=== PATIENT | male | born 1960 | race Caucasian/White ===

== ENCOUNTER 2018-05-20 06:52 | Inpatient (IN) ==
[2018-05-20] MEDS ORDERED: MAGNESIUM SULF RIDER 2 GM in PREMIX 1 EACH IV STA (07:22)
[2018-05-20] MEDS ORDERED: THIAMINE 200 MG/2 ML VIAL IM STA (07:22)
[2018-05-20] MEDS ORDERED: LORazepam 2 MG/1 ML VIAL ONE (07:27)
[2018-05-20 07:28] LABS: Basophils # 0.1 10*3/uL (0.0-0.2); Basophils % 1.2 % (0.0-0.8); Eosinophils # 0.1 10*3/uL (0.0-0.87); Eosinophils % 0.9 % (0.00-10.9); Hematocrit 32.6 VOL% (42.0-52.0); Hemoglobin 10.2 GM/DL (14.0-18.0); Immature Granulocytes % 0.4 %; Immature Granulocytes Absolute 0.05 #; Lymphocytes # 0.5 10*3/uL (1.4-4.0); Lymphocytes % 3.9 % (21.2-54.2); Mean Corpuscular HGB Conc 31.3 GM/DL (32-36); Mean Corpuscular Hemoglobin 31 PG (27-34); Mean Corpuscular Volume 98.8 FL (87-102); Mean Platelet Volume 8.5 FL (9.6-12.0); Monocytes # 0.4 10*3/uL (0.11-0.8); Monocytes % 3.5 % (1.7-12.7); Neutrophils # 10.7 10*3/uL (1.4-7.4); Neutrophils % 90.1 % (38.7-73.9); Platelet Count 499 T/CUMM (130-400); Red Cell Distribution Width 16.3 % (9.3-17.3); White Blood Count 11.9 T/CUMM (4-12)
[2018-05-20] MEDS ORDERED: LORazepam 2 MG/1 ML VIAL IV STA (07:37)
[2018-05-20] MEDS ORDERED: levETIRAcetam 500 MG/5 ML VIAL IV ONE (07:45)
[2018-05-20 07:47] LABS: Bilirubin,Total 0.6 MG/DL (0.2-1.0); Calcium 8.3 MG/DL (8.5-10.1); Total Protein 6.6 G/DL (6.4-8.3)
[2018-05-20 07:48] LABS: Albumin 2.9 G/DL (3.4-5.0); Potassium 3.8 MMOL/L (3.5-5.1)
[2018-05-20 07:49] LABS: Band Neutrophils 2 % (0-10); Eosinophils 2 % (0-10); Lymphocytes 6 % (20-55); Platelet Estimate Increased; Segmented Neutrophils 88 % (50-85); Total Cells Counted 100
[2018-05-20 07:49] LABS: Lactic Acid 12.6 MMOL/L (0.4-2.0)
[2018-05-20 07:50] LABS: Hypochromasia 1+
[2018-05-20 08:03] LABS: Carbamazepine (Tegretol) < 0.5 UG/ML (4.0-12.0); Phenytoin (Dilantin) < 0.5 UG/ML (10-20)
[2018-05-20 08:21] LABS: Apearance,Urine CLEAR (Clear); Bilirubin,Urine Negative (Negative); Blood, Urine Negative (Negative); Glucose,Urine (UA) Negative (Negative); Ketones,Urine Negative (Negative); Mucus,Urine Occasional /LPF (Occasional); Nitrite,Urine Negative (Negative); Protein,Urine Negative; RBC,Urine <1 /HPF (0-4); Urine Color Straw (Yellow); Urine Specific Gravity 1.009 (1.001-1.035); Urine Urobilinogen < 2.0 EU/DL (0.2-1.0); WBC,Urine 1 /HPF (0-6)
[2018-05-20 08:27] LABS: Barbiturates Screen,Urine Negative (Negative); Benzodiazepines Screen,Urine Positive (Negative); Cannabinoid Screen,Urine Negative (Negative); Opiate Screen,Urine Negative (Negative); Phencyclidine Screen,Urine Negative (Negative)
[2018-05-20] MEDS ORDERED: ALBUTEROL 2.5 MG/3 ML NEB RESP TX PRN (10:33)
[2018-05-20] MEDS ORDERED: ONDANSETRON 4 MG/2 ML VIAL IV PRN (10:33)
[2018-05-20] MEDS ORDERED: LORazepam 2 MG/1 ML VIAL IV PRN (10:46)
[2018-05-20] MEDS ORDERED: hydrALAZINE 20 MG/1 ML VIAL IV PRN (12:53)
[2018-05-20] MEDS: LOSARTAN 25 MG TABLET PO SCH (16:29)
[2018-05-20] MEDS: PANTOPRAZOLE 40 MG VIAL IV SCH (16:31)
[2018-05-21 04:12] LABS: Basophils # 0.1 10*3/uL (0.0-0.2); Basophils % 1.6 % (0.0-0.8); Eosinophils # 0.3 10*3/uL (0.0-0.87); Eosinophils % 3.7 % (0.00-10.9); Hematocrit 30.4 VOL% (42.0-52.0); Hemoglobin 9.8 GM/DL (14.0-18.0); Immature Granulocytes % 0.3 %; Immature Granulocytes Absolute 0.02 #; Lymphocytes # 1.7 10*3/uL (1.4-4.0); Lymphocytes % 22.4 % (21.2-54.2); Mean Corpuscular HGB Conc 32.2 GM/DL (32-36); Mean Corpuscular Hemoglobin 31 PG (27-34); Mean Platelet Volume 9.2 FL (9.6-12.0); Monocytes # 0.7 10*3/uL (0.11-0.8); Monocytes % 9.4 % (1.7-12.7); Neutrophils # 4.7 10*3/uL (1.4-7.4); Neutrophils % 62.6 % (38.7-73.9); Platelet Count 446 T/CUMM (130-400); Red Cell Distribution Width 16.2 % (9.3-17.3); White Blood Count 7.6 T/CUMM (4-12)
[2018-05-21 04:41] LABS: Calcium 8.2 MG/DL (8.5-10.1); Osmolality,Calculated 272.7 MOS/KG (273-304); Potassium 3.2 MMOL/L (3.5-5.1)
[2018-05-21 04:43] LABS: Risk Ratio 1.73
[2018-05-21 04:48] LABS: Albumin 2.7 G/DL (3.4-5.0); Bilirubin,Direct 0.23 MG/DL (0.0-0.20); Bilirubin,Indirect 0.5 MG/DL (0.0-1.0); Bilirubin,Total 0.7 MG/DL (0.2-1.0); Total Protein 5.9 G/DL (6.4-8.3)
[2018-05-21] MEDS: LOSARTAN 25 MG TABLET PO SCH (09:33)
[2018-05-21] MEDS: POTASSIUM CHLORIDE 20 MEQ TABLET PO PRN ×2 (09:34→12:18)
[2018-05-21] MEDS: PANTOPRAZOLE 40 MG VIAL IV SCH (12:17)
[2018-05-21] MEDS ORDERED: ACETAMINOPHEN 325 MG/10.15 ML UDCUP ONE ×2 (12:42→12:43)
[2018-05-21 13:45] VITALS: BP 160/92
== END 2018-05-21 12:48 | disposition home or self-care (01) | DRG 53 ==
LOC: EDBD → N.ED 06:52 → N.EDINP 10:32 → N.ICU 11:05
PROVIDERS: ADMIT Internal Medicine Geriatric Medicine; ATTEND Internal Medicine Geriatric Medicine

== ENCOUNTER 2018-07-16 10:11 | Inpatient (IN) ==
[2018-07-16 12:29] LABS: Basophils % 0.2 % (0.0-0.8); Eosinophils # 0.1 10*3/uL (0.0-0.87); Eosinophils % 0.9 % (0.00-10.9); Immature Granulocytes % 1.1 %; Immature Granulocytes Absolute 0.06 #; Lymphocytes # 0.9 10*3/uL (1.4-4.0); Lymphocytes % 17.4 % (21.2-54.2); Mean Corpuscular HGB Conc 30.7 GM/DL (32-36); Mean Corpuscular Hemoglobin 29 PG (27-34); Mean Corpuscular Volume 92.7 FL (87-102); Mean Platelet Volume 9.2 FL (9.6-12.0); Monocytes # 1.2 10*3/uL (0.11-0.8); Monocytes % 21.8 % (1.7-12.7); Neutrophils # 3.2 10*3/uL (1.4-7.4); Neutrophils % 58.6 % (38.7-73.9); Platelet Count 486 T/CUMM (130-400); Red Blood Count 1.79 MC/CUMM (3.8-5.5); Red Cell Distribution Width 19.6 % (9.3-17.3); White Blood Count 5.4 T/CUMM (4-12)
[2018-07-16 12:33] LABS: Hemoglobin 5.1 GM/DL (14.0-18.0)
[2018-07-16 12:34] LABS: Hematocrit 16.6 VOL% (42.0-52.0)
[2018-07-16] MEDS ORDERED: SODIUM CHLORIDE 0.9% 1,000 ML IV PRN (12:39)
[2018-07-16 12:41] LABS: Albumin 2.6 G/DL (3.4-5.0); Bilirubin,Total 0.6 MG/DL (0.2-1.0); Osmolality,Calculated 275.8 MOS/KG (273-304)
[2018-07-16 12:43] LABS: Potassium 2.3 MMOL/L (3.5-5.1)
[2018-07-16 12:50] LABS: Lactic Acid 2.4 MMOL/L (0.4-2.0)
[2018-07-16] MEDS ORDERED: POTASSIUM BICARB EFFERVESCENT 25 MEQ TABLET PO ONE (12:56)
[2018-07-16 12:59] LABS: Atypical Lymphocytes Few; Band Neutrophils 9 % (0-10); Lymphocytes 20 % (20-55); Platelet Estimate Normal; Segmented Neutrophils 58 % (50-85); Total Cells Counted 100
[2018-07-16 13:00] LABS: Anisocytosis 2+; Polychromasia 1+
[2018-07-16 13:01] LABS: Hypochromasia Slight
[2018-07-16 13:34] LABS: Apearance,Urine CLEAR (Clear); Bilirubin,Urine Negative (Negative); Blood, Urine Negative (Negative); Glucose,Urine (UA) Negative (Negative); Ketones,Urine Negative (Negative); Nitrite,Urine Negative (Negative); Protein,Urine Negative; RBC,Urine <1 /HPF (0-4); Urine Color Yellow (Yellow); Urine Specific Gravity 1.015 (1.001-1.035); WBC,Urine 1 /HPF (0-6)
[2018-07-16 13:47] LABS: Barbiturates Screen,Urine Negative (Negative); Benzodiazepines Screen,Urine Negative (Negative); Cannabinoid Screen,Urine Negative (Negative); Opiate Screen,Urine Negative (Negative); Phencyclidine Screen,Urine Negative (Negative)
[2018-07-16] MEDS ORDERED: ONDANSETRON 4 MG/2 ML VIAL IV PRN (14:07)
[2018-07-16] MEDS ORDERED: ACETAMINOPHEN 325 MG TABLET PO PRN (14:07)
[2018-07-16] MEDS ORDERED: PROMETHAZINE 25 MG/1 ML VIAL IM PRN (14:07)
[2018-07-16] MEDS ORDERED: PANTOPRAZOLE 40 MG TABLET PO SCH (14:30)
[2018-07-16 14:53] LABS: % Iron Saturation 5.3 % (18-50); Ferritin 83.6 ng/ml (26-388)
[2018-07-16] MEDS ORDERED: MAGNESIUM SULF RIDER 2 GM in PREMIX 1 EACH IV ONE ×2 (14:58→20:00)
[2018-07-16 15:06] LABS: Folate 17.2 NG/ML (5.4-24.0)
[2018-07-16] MEDS ORDERED: SODIUM CHLORIDE 0.9% 2,000 ML IV ONE (16:25)
[2018-07-16] MEDS ORDERED: SODIUM CHLORIDE 0.9% 2,200 ML IV ONE (16:28)
[2018-07-16] MEDS ORDERED: POTASSIUM CHLORIDE 20 MEQ TABLET PO STA (16:41)
[2018-07-16 18:24] LABS: Basophils % 0.2 % (0.0-0.8); Eosinophils % 0.8 % (0.00-10.9); Immature Granulocytes % 1.4 %; Immature Granulocytes Absolute 0.07 #; Lymphocytes # 0.8 10*3/uL (1.4-4.0); Lymphocytes % 17.4 % (21.2-54.2); Mean Corpuscular HGB Conc 30.9 GM/DL (32-36); Mean Corpuscular Hemoglobin 29 PG (27-34); Mean Corpuscular Volume 92.6 FL (87-102); Mean Platelet Volume 8.6 FL (9.6-12.0); Monocytes # 1.1 10*3/uL (0.11-0.8); Monocytes % 22.7 % (1.7-12.7); Neutrophils # 2.8 10*3/uL (1.4-7.4); Neutrophils % 57.5 % (38.7-73.9); Platelet Count 434 T/CUMM (130-400); Red Blood Count 1.75 MC/CUMM (3.8-5.5); Red Cell Distribution Width 19.8 % (9.3-17.3); White Blood Count 4.8 T/CUMM (4-12)
[2018-07-16 18:37] LABS: Hematocrit 16.2 VOL% (42.0-52.0)
[2018-07-16 19:26] LABS: Eosinophils 1 % (0-10); Lymphocytes 20 % (20-55); Segmented Neutrophils 69 % (50-85); Total Cells Counted 100
[2018-07-16 19:27] LABS: Hypochromasia 1+; Macrocytosis Slight; Polychromasia Slight
[2018-07-16 19:28] LABS: Platelet Estimate Increased
[2018-07-16] MEDS: levETIRAcetam 500 MG TABLET PO SCH ×2 (20:05→23:00)
[2018-07-16] MEDS: PANTOPRAZOLE 40 MG VIAL IV SCH ×2 (20:06→23:00)
[2018-07-16] MEDS: FERROUS SULFATE 325 MG TABLET PO SCH (20:13)
[2018-07-16] MEDS: POTASSIUM CHLORIDE RIDER 10 MEQ in PREMIX 1 EACH IV SCH (23:01)
[2018-07-17] MEDS: POTASSIUM CHLORIDE RIDER 10 MEQ in PREMIX 1 EACH IV SCH ×3 (00:23→03:03)
[2018-07-17 02:53] LABS: Basophils % 0.3 % (0.0-0.8); Eosinophils # 0.1 10*3/uL (0.0-0.87); Eosinophils % 1.7 % (0.00-10.9); Hematocrit 18.4 VOL% (42.0-52.0); Immature Granulocytes % 1.3 %; Immature Granulocytes Absolute 0.08 #; Lymphocytes # 1.5 10*3/uL (1.4-4.0); Lymphocytes % 23.7 % (21.2-54.2); Mean Corpuscular Hemoglobin 29 PG (27-34); Mean Platelet Volume 9.3 FL (9.6-12.0); Monocytes % 16.1 % (1.7-12.7); Neutrophils # 3.6 10*3/uL (1.4-7.4); Neutrophils % 56.9 % (38.7-73.9); Platelet Count 456 T/CUMM (130-400); Red Cell Distribution Width 18.5 % (9.3-17.3); White Blood Count 6.3 T/CUMM (4-12)
[2018-07-17 03:02] LABS: Hemoglobin 5.7 GM/DL (14.0-18.0)
[2018-07-17] MEDS: POTASSIUM CHLORIDE RIDER 10 MEQ in PREMIX 1 EACH IV PRN ×2 (03:02→09:36)
[2018-07-17 03:21] LABS: Calcium 7.1 MG/DL (8.5-10.1); Osmolality,Calculated 282.3 MOS/KG (273-304); Potassium 3.1 MMOL/L (3.5-5.1); Risk Ratio 1.93
[2018-07-17 03:38] LABS: Anisocytosis 1+; Band Neutrophils 1 % (0-10); Eosinophils 2 % (0-10); Lymphocytes 30 % (20-55); Segmented Neutrophils 61 % (50-85); Total Cells Counted 100
[2018-07-17 03:39] LABS: Hypochromasia 2+; Platelet Estimate Normal
[2018-07-17 07:06] LABS: Basophils % 0.3 % (0.0-0.8); Eosinophils # 0.1 10*3/uL (0.0-0.87); Eosinophils % 1.9 % (0.00-10.9); Hematocrit 21.8 VOL% (42.0-52.0); Immature Granulocytes % 1.5 %; Lymphocytes # 1.1 10*3/uL (1.4-4.0); Lymphocytes % 16.8 % (21.2-54.2); Mean Corpuscular HGB Conc 32.1 GM/DL (32-36); Mean Corpuscular Hemoglobin 29 PG (27-34); Mean Corpuscular Volume 89.7 FL (87-102); Mean Platelet Volume 8.7 FL (9.6-12.0); Monocytes % 15.3 % (1.7-12.7); Neutrophils # 4.2 10*3/uL (1.4-7.4); Neutrophils % 64.2 % (38.7-73.9); Platelet Count 410 T/CUMM (130-400); Red Blood Count 2.43 MC/CUMM (3.8-5.5); Red Cell Distribution Width 17.9 % (9.3-17.3); White Blood Count 6.5 T/CUMM (4-12)
[2018-07-17 09:32] LABS: Basophils % 0.3 % (0.0-0.8); Eosinophils # 0.1 10*3/uL (0.0-0.87); Eosinophils % 1.3 % (0.00-10.9); Hematocrit 24.7 VOL% (42.0-52.0); Hemoglobin 7.9 GM/DL (14.0-18.0); Immature Granulocytes % 1.3 %; Lymphocytes % 13.4 % (21.2-54.2); Mean Corpuscular Hemoglobin 29 PG (27-34); Mean Corpuscular Volume 90.1 FL (87-102); Mean Platelet Volume 8.6 FL (9.6-12.0); Monocytes # 0.9 10*3/uL (0.11-0.8); Monocytes % 12.4 % (1.7-12.7); NRBC # 0.03 10*3/uL; Neutrophils # 5.4 10*3/uL (1.4-7.4); Neutrophils % 71.3 % (38.7-73.9); Platelet Count 452 T/CUMM (130-400); Red Blood Count 2.74 MC/CUMM (3.8-5.5); Red Cell Distribution Width 18.5 % (9.3-17.3); White Blood Count 7.6 T/CUMM (4-12)
[2018-07-17] MEDS: PANTOPRAZOLE 40 MG VIAL IV SCH ×2 (09:35→20:54)
[2018-07-17] MEDS: levETIRAcetam 500 MG TABLET PO SCH ×2 (09:36→20:53)
[2018-07-17] MEDS: FERROUS SULFATE 325 MG TABLET PO SCH ×2 (09:36→20:53)
[2018-07-17] MEDS: CALCIUM (CARBONATE)/VITAMIN D 600 MG-400 UNIT TABLET PO SCH ×2 (09:37→20:53)
[2018-07-17] MEDS: POTASSIUM CHLORIDE 20 MEQ TABLET PO PRN ×3 (10:58→18:56)
[2018-07-17] MEDS ORDERED: CETIRIZINE 10 MG TABLET PO PRN (14:51)
[2018-07-17] MEDS: LISINOPRIL 20 MG TABLET PO SCH (18:56)
[2018-07-17] MEDS: hydrALAZINE 20 MG/1 ML VIAL IV PRN (21:52)
[2018-07-17] MEDS ORDERED: hydrALAZINE 20 MG/1 ML VIAL IV ONE (23:44)
[2018-07-18 01:02] LABS: Basophils % 0.4 % (0.0-0.8); Eosinophils # 0.1 10*3/uL (0.0-0.87); Hematocrit 29.7 VOL% (42.0-52.0); Hemoglobin 9.3 GM/DL (14.0-18.0); Immature Granulocytes % 1.5 %; Immature Granulocytes Absolute 0.17 #; Lymphocytes # 1.1 10*3/uL (1.4-4.0); Lymphocytes % 10.2 % (21.2-54.2); Mean Corpuscular HGB Conc 31.3 GM/DL (32-36); Mean Corpuscular Hemoglobin 28 PG (27-34); Mean Corpuscular Volume 89.2 FL (87-102); Mean Platelet Volume 8.9 FL (9.6-12.0); Monocytes # 0.9 10*3/uL (0.11-0.8); Monocytes % 8.1 % (1.7-12.7); NRBC # 0.03 10*3/uL; Neutrophils # 8.8 10*3/uL (1.4-7.4); Neutrophils % 78.8 % (38.7-73.9); Platelet Count 488 T/CUMM (130-400); Red Blood Count 3.33 MC/CUMM (3.8-5.5); Red Cell Distribution Width 17.4 % (9.3-17.3); White Blood Count 11.2 T/CUMM (4-12)
[2018-07-18 01:17] LABS: Calcium 7.7 MG/DL (8.5-10.1); Osmolality,Calculated 277.4 MOS/KG (273-304); Potassium 3.5 MMOL/L (3.5-5.1)
[2018-07-18] MEDS: PANTOPRAZOLE 40 MG VIAL IV SCH ×2 (08:07→20:41)
[2018-07-18] MEDS ORDERED: LIDOCAINE 100 MG/5 ML SYRINGE ONE (10:00)
[2018-07-18] MEDS ORDERED: PROPOFOL 200 MG/20 ML VIAL IV ONE (10:00)
[2018-07-18] MEDS: hydrALAZINE 20 MG/1 ML VIAL IV PRN (10:22)
[2018-07-18] MEDS: CALCIUM (CARBONATE)/VITAMIN D 600 MG-400 UNIT TABLET PO SCH ×2 (15:32→20:38)
[2018-07-18] MEDS: FERROUS SULFATE 325 MG TABLET PO SCH ×2 (15:32→20:40)
[2018-07-18] MEDS: levETIRAcetam 500 MG TABLET PO SCH ×2 (15:32→20:39)
[2018-07-18] MEDS: LISINOPRIL 20 MG TABLET PO SCH (15:33)
[2018-07-18] MEDS ORDERED: BISACODYL 5 MG TABLET PO ONE (16:00)
[2018-07-18] MEDS ORDERED: POLYETHYLENE GLYCOL POWDER 255 GM BOTTLE PO ONE (18:00)
[2018-07-19] MEDS: hydrALAZINE 20 MG/1 ML VIAL IV PRN (03:40)
[2018-07-19 05:19] LABS: Basophils # 0.1 10*3/uL (0.0-0.2); Basophils % 0.7 % (0.0-0.8); Eosinophils # 0.2 10*3/uL (0.0-0.87); Hematocrit 28.5 VOL% (42.0-52.0); Hemoglobin 9.1 GM/DL (14.0-18.0); Immature Granulocytes % 1.2 %; Immature Granulocytes Absolute 0.09 #; Lymphocytes # 1.4 10*3/uL (1.4-4.0); Mean Corpuscular HGB Conc 31.9 GM/DL (32-36); Mean Corpuscular Hemoglobin 29 PG (27-34); Mean Corpuscular Volume 90.2 FL (87-102); Mean Platelet Volume 8.8 FL (9.6-12.0); Monocytes # 0.9 10*3/uL (0.11-0.8); Monocytes % 12.5 % (1.7-12.7); Neutrophils # 4.8 10*3/uL (1.4-7.4); Neutrophils % 64.6 % (38.7-73.9); Platelet Count 493 T/CUMM (130-400); Red Blood Count 3.16 MC/CUMM (3.8-5.5); Red Cell Distribution Width 17.7 % (9.3-17.3); White Blood Count 7.4 T/CUMM (4-12)
[2018-07-19] MEDS ORDERED: MAGNESIUM CITRATE 300 ML BOTTLE PO ONE (06:00)
[2018-07-19 08:11] VITALS: BP 162/102
[2018-07-19] MEDS: LISINOPRIL 20 MG TABLET PO SCH (08:56)
[2018-07-19] MEDS: CALCIUM (CARBONATE)/VITAMIN D 600 MG-400 UNIT TABLET PO SCH (08:56)
[2018-07-19] MEDS: levETIRAcetam 500 MG TABLET PO SCH (08:56)
[2018-07-19] MEDS: FERROUS SULFATE 325 MG TABLET PO SCH (08:57)
[2018-07-19] MEDS: PANTOPRAZOLE 40 MG VIAL IV SCH (08:57)
[2018-07-19] MEDS ORDERED: amLODIPine 5 MG TABLET PO SCH (09:00)
== END 2018-07-19 14:45 | disposition home or self-care (01) | DRG 663 ==
LOC: N.ED 10:11 → N.EDINP 14:07 → SUATTDRO 14:07 → N.EDINP 15:28 → N.4E 16:42
PROVIDERS: ADMIT Family Medicine; ATTEND Hospitalist